=== PATIENT | male | born 1990 | race Caucasian/White ===

== ENCOUNTER 2016-05-02 18:27 | Emergency (ER) | payer OTHER ==
[~2016-05-02] VITALS: Ht 182.9 cm; Wt 132.6 kg
[~2016-05-02 18:27] MED LIST: FLEXERIL10 MG PO; INDOCIN25 MG PO; MOTRIN600 MG PO; NAPROSYN500 MG PO; NAPROXEN500 MG PO; NOHOMEMEDS; NORCO 5/3251 TABLET PO
[2016-05-02 19:33] LABS: HEMATOCRIT 44.9 % (38.0-50.0); MCH 29.3 PG (29.0-34.0); MCHC 33.6 G/DL (30.0-36.0); MCV 87.2 FL (86-99); MEAN PLAT.VOLUME 9.2 uM^3 (9.0-12.4); PLATELET COUNT 315 K/uL (156-360); RBC DIS.WIDTH-CV 12.5 % (11.8-14.6); RBC DIS.WIDTH-SD 39.9 % (39-53); RED BLOOD COUNT 5.15 M/uL (4.00-5.50)
[2016-05-02 19:42] LABS: CHLORIDE 103 mEq/L (99-109); POTASSIUM 4.3 mEq/L (3.7-5.4); SODIUM 139 mEq/L (136-147)
[2016-05-02 19:44] LABS: GLUCOSE 96 mg/dL (70-99)
[2016-05-02 19:45] LABS: ANION GAP 10 MEQ/L (2-14)
[2016-05-02 19:48] LABS: GFR ESTIMATE (CALCULATED) > 59 mL/min/
[2016-05-02 19:49] LABS: UREA NITROGEN (BUN) 12 mg/dL (9-23)
[2016-05-02 19:53] LABS: TROP-I INTERPRETATION NEGATIVE; TROPONIN-I < 0.01 ng/mL (0.0-0.30)
[2016-05-02 20:32] LABS: D-DIMER ELISA 0.21 mg/L FEU (< 0.57)
[2016-05-02] MEDS ORDERED: VENTOLIN HFA18 GM IH (21:17)
[2016-05-02 21:34] VITALS: BP 140/77
== END 2016-05-02 21:35 | disposition home or self-care (01) ==
LOC: EME 18:27
DX: R07.9 Chest pain, unspecified (principal); K21.9 Gastro-esophageal reflux disease without esophagitis; J98.01 Acute bronchospasm; R22.0 Localized swelling, mass and lump, head; F17.200 Nicotine dependence, unspecified, uncomplicated
CPT/HCPCS: 71020; 80048; 84484; 85027; 85379; 93005; 94640; 99281; 99285